=== PATIENT | male | born 1965 | race Caucasian/White ===

== ENCOUNTER 2016-11-22 21:17 | Emergency (ER) | payer OTHER ==
--- NOTE | 2016-11-22 23:14 | DIAGNOSTIC IMAGING REPORT ---
PROCEDURE: XR CHEST 2 VIEW INDICATION: COUGH TECHNIQUE: Two views. COMPARISON: None. FINDINGS: The cardiomediastinal contour and central vasculature are within normal limits. The lungs are clear without focal consolidation, pleural effusion, or pneumothorax. The visualized osseous structures are intact. IMPRESSION: 1. Normal chest.
--- NOTE | 2016-11-22 23:57 | DIAGNOSTIC IMAGING REPORT ---
PROCEDURE: ABDOMEN/PELVIS WITH CONTRAST CLINICAL INDICATION: ABDOMINAL PAIN left upper quadrant pain 2 days TECHNIQUE: 125 ml of Isovue 300 were injected intravenously and axial images were obtained of the abdomen and pelvis with sagittal and coronal reformations. COMPARISON: None. FINDINGS: ABDOMEN: Clear lung bases. Normal sized heart. No hiatal hernia. Multiple parapelvic cysts, left larger than right. The liver, gallbladder, adrenal glands, kidneys, pancreas and spleen are otherwise normal. The abdominal aorta is normal in its course and caliber. No atherosclerosis. There are no suspicious calcifications, retroperitoneal adenopathy or masses. The stomach, upper bowel loops, and mesentery are normal. Intact anterior abdominal wall. No free fluid or inflammation. PELVIS: The appendix and pelvic small bowel loops are normal. Normal amount of stool in the colon and rectum. The prostate gland, seminal vesicles, urinary bladder, and pelvic vessels are normal. No adenopathy, free fluid, or pelvic mass. Mild degenerative changes lower lumbar spine. IMPRESSION: 1. No acute process. 2. Bilateral, left greater than right parapelvic renal cysts. 3. Discussed with Dr. Billy in the emergency room. All CT scans at this facility use dose modulation, iterative reconstruction, and/or weight-based dosing when appropriate to reduce radiation dose to as low as reasonably achievable.
--- NOTE | 2016-11-23 01:56 | ED NURSING NOTES ---
Clinical Report - Nurses [facility] [address] [place] [address] 11/22/2016 21:20 [id number] Triage time 21:Nov 22 2016. Acuity: LEVEL 3. Chief Complaint: ABDOMINAL PAIN and NAUSEA. Alert. JB COMA SCORE: Jb Coma Scale: 15- eyes open spontaneously (4); best verbal response- oriented x 4 (5); best motor response- obeys commands (6). --21:38 Edward Singer R.N. 21:28 11/22/16. BP: 133/85. HR: 81. RR: 16. O2 saturation: 94%. Temp: 100.8 F (oral). Pain level now: 12/11. --21:38 Edward Singer R.N. Weight: 86.1 kg stated. Height/Length: 65 inches Per Patient. BMI: 31.6. --21:36 Edward Singer R.N. Medications Lisinopril Oral 10 mg, daily. --21:32 Edward Singer R.N. Allergies No Known Drug Allergy. --21:32 Edward Singer R.N. History Arrived by private vehicle. Historian: patient. Accompanied by friend. ( Abdominal Pain associated with a fever, nausea, and chills. Pt states that it all started yesterday about 26 hours ago.). This started yesterday. Onset. (about 26 hours ago). He has had fever, nausea and abdominal pain. Last oral intake by patient was (about 1 hour ago). 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 PAST MEDICAL HX: Immunizations: status is unknown. SOCIAL HX: Never smoker. No alcohol use or drug use. No recent travel. No infectious disease exposure. ABUSE ASSESSMENT: No report of abuse. FALL RISK ASSESSMENT: Fall risk assessment completed. No fall risk identified. NUTRITIONAL RISK ASSESSMENT: The nutritional risk assessment revealed no deficiencies. FUNCTIONAL ASSESSMENT: Functional assessment: no impairments noted. LEARNING NEEDS ASSESSMENT: The learning needs assessment revealed no barriers. SKIN INTEGRITY ASSESSMENT: Skin integrity risk assessment completed. No skin integrity risk identified. --21:38 Edward Singer R.N. ADDITIONAL SURGERIES: Inguinal Hernia Repair. Kidney Repair. Knee Surgery. Shoulder Surgery. --21:34 Edward Singer R.N. Interventions ID band on patient. To treatment room. --21:38 Edward Singer R.N. PHYSICAL ASSESSMENT Ambulatory to room. GENERAL / NEURO / PSYCH: Alert. Oriented X 4. Appears in pain. HEENT: Mucous membranes are pink. RESPIRATORY: Respirations not labored. CVS: Normal sinus rhythm noted. GI / : Abdomen soft. SKIN: Skin is warm and dry. --21:37 Edward Singer R.N. NURSING PROGRESS NOTES Patient gowned. Reassurance given. Call light placed in reach. Side rails up. Patient ready for evaluation- chart flagged and ED physician notified. --21:38 Edward Singer R.N. 21:42 11/22/2016 Site #1 started via IV in the right hand with an 20g angiocath, with aseptic technique and good blood return; one attempt. Blood drawn: rainbow set. Labeled in the presence of the patient and sent to the lab. Saline lock flushed with 10 mL saline. --21:57 Edward Singer R.N. 21:42 11/22/2016 Started bag #1 1000 mL IV Fluids IV NS (Saline); at 1000 mL/hr over 60 minute(s) via site #1. Allergies verified and confirmed 5 rights. IV patency established. IV site checked: no pain, redness, or swelling. IV flushed thoroughly pre- and post-medication administration. --21:57 Edward Singer R.N. 21:48 11/22/2016 Toradol IVP 30 mg given over 2 minute(s) via site #1. Allergies verified and confirmed 5 rights. IV patency established. IV site checked: no pain, redness, or swelling. IV flushed thoroughly pre- and post-medication administration. IVP given by RN. --21:58 Edward Singer R.N. 21:58 11/22/2016 Zofran (Ondansetron HCl) IVP 4 mg given over 2 minute(s) via site #1. Allergies verified and confirmed 5 rights. IV patency established. IV site checked: no pain, redness, or swelling. IV flushed thoroughly pre- and post-medication administration. IVP given by RN. --22:08 Edward Singer R.N. 23:47 11/22/16. BP: 134/79. HR: 71. RR: 16. O2 saturation: 95% on room air. Vallecillo-Snowden pain scale: 2/10. --23:48 Meli Fraire R.N. hall monitor, pulse oximeter and NIBP monitor placed on patient; monitor alarms on. --23:48 Meli Fraire R.N. ( pt given urinal and sample requested.). --23:53 Meli Fraire R.N. 23:54 11/22/2016 IV Fluids IV NS Discontinued: bag #1 completed. Total amount infused: 1000 mL. IV patency established. IV site checked: no pain, redness, or swelling. IV flushed thoroughly. (bag hanging dry at bedside upon my assuming care of pt.). --23:54 Meli Fraire R.N. 23:55 11/22/2016 Started bag #2 1000 mL IV Fluids IV NS (Saline); at 1000 mL/hr via site #1 via IV pump. Allergies verified and confirmed 5 rights. IV patency established. IV site checked: no pain, redness, or swelling. IV flushed thoroughly pre- and post-medication administration (bag #2 started per verbal order from EDMD). --23:56 Meli Fraire R.N. 00:55. Patient ID band checked for patient name and birthdate urine collected with return of yellow-colored genesis-colored clear urine; sample sent to lab. Specimen labeled in the presence of the patient. --01:14 Meli Fraire R.N. 00:55 11/23/2016 IV Fluids IV NS Discontinued: bag #2 completed. Total amount infused: 1000 mL. IV patency established. IV site checked: no pain, redness, or swelling. IV flushed thoroughly. --01:15 Meli Fraire R.N. DISPOSITION / DISCHARGE 02:26 11/23/2016 Site #1 removed upon discharge. Bandaid applied. --02:37 Stephanie Valdivia R.N. late entry - 02:32 11/23/16. Departure time: 02:35 Nov 23 2016. Condition at departure: improved. No learning barriers present. Discharge instructions provided and reviewed with the patient. Reviewed medication(s) side effects, precautions, dosing and course information. Prescription(s) given to the patient. Patient verbalized understanding. Written instructions provided in [place]. The patient was discharged by the physician. He was discharged home and accompanied by spouse. He left the Emergency Department ambulatory and via private vehicle. Spouse driving. --02:38 Stephanie Valdivia R.N. 02:36 11/23/16. BP: 135/92 (regular adult cuff) taken on the left arm, while sitting. HR: 77. RR: 16. O2 saturation: 96% on room air. Temp: 98.2 F (oral). Pain level now: 5/10. --02:38 Stephanie Valdivia R.N. Locked/Released at 12/01/2016 5:17 by Meli Fraire R.N.
--- NOTE | 2016-11-23 01:56 | ED CLINICAL REPORT ---
Clinical Report - Physicians/Mid Levels [facility] [address] [place] [place] [address] 11/22/2016 21:20 Patient: ARLETTE GOEL Time Seen: 21:25; initial patient contact. Arrived- By private vehicle. Historian- patient. HISTORY OF PRESENT ILLNESS Chief Complaint: ABDOMINAL PAIN. At its maximum, severity described as moderate. When seen in the E.D., severity described as moderate. Modifying factors. Not worsened by anything. Not relieved by anything. No radiation. It is described as located in the left abdomen. This started yesterday and is still present. The patient has had nausea, loss of appetite and vomiting. No diarrhea. No recent travel. Similar symptoms previously: None. Recent medical care: Not recently seen/assessed. REVIEW OF SYSTEMS No constipation, hematemesis, difficulty with urination, pain with urination or chest pain. No difficulty breathing or cough. He has had fever and chills. All systems otherwise negative, except as recorded above. PAST HISTORY Inguinal Hernia Repair. Kidney Repair. Knee Surgery. Shoulder Surgery. Hypertension. Medications: Lisinopril Oral 10 mg, daily. Allergies: No Known Drug Allergy. SOCIAL HISTORY Never smoker. No alcohol use or drug use. ADDITIONAL NOTES The nursing notes have been reviewed. PHYSICAL EXAM Vital Signs: 11/22/2016 21:28 BP: 133/85. HR: 81. RR: 16. O2 saturation: 94%. Temp: 100.8 F. Pain level now: 7/10. Have been reviewed. Blood pressure normal. Heart rate normal. Respiratory rate normal. Febrile. Oxygen saturation low. Appearance: Alert. Oriented X3. No acute distress. Eyes: Eyes normal inspection. ENT: Dry mucous membranes present. CVS: Normal heart rate and rhythm. Heart sounds normal. Respiratory: No respiratory distress. Breath sounds normal. Chest nontender. Abdomen: Soft. Mild tenderness in the left side of the abdomen. No guarding or rebound tenderness. Bowel sounds normal. No organomegaly. No mass. Back: Normal inspection. No CVA tenderness. Skin: Skin warm and dry. Normal skin color. Extremities: No lower extremity edema. Neuro: Oriented X 3. LABS, X-RAYS, AND EKG Chest X-ray: No acute disease. Normal lung markings present. Normal heart size. Mediastinum normal. Great vessels normal. No infiltrate. Views: PA and lateral. Technique: good. The X-rays were independently viewed by me and interpreted contemporaneously by me. Prior films were not available for comparison. Abdominal CT: 1. No acute process. 2. Bilateral, left greater than right parapelvic renal cysts. Study type: abdomen and pelvis. Abdominal CT performed with IV contrast. The study was independently viewed by me, interpreted by the radiologist and discussed with the radiologist. Prior studies were not available for comparison. Laboratory Tests: UA-Culture if indicated: (EZE: 11/22/2016 00:55) ( [facility]23[facility]2016 01:20) Final results Test Result Flag Units (Reference) URINE COLOR YELLOW URINE APPEARANCE CLEAR URINE GLUCOSE NEGATIVE (NEGATIVE) URINE BILIRUBIN NEGATIVE (NEGATIVE) URINE KETONE NEGATIVE (NEGATIVE) URINE SPECIFIC GRAVITY <= 1.005 L (1.010-1.030) URINE PH 5.5 (5.0-8.0) URINE PROTEIN NEGATIVE (NEGATIVE) URINE UROBILINOGEN 0.2 EU/dL (0.2-1.0) URINE NITRITE NEGATIVE (NEGATIVE) URINE BLOOD NEGATIVE (NEGATIVE) URINE LEUK ESTERASE NEGATIVE (NEGATIVE) URINE RBC RARE rbc/hpf (0-1) URINE WBC NONE SEEN wbc/hpf (0-1) URINE EPITHELIAL CELLS NONE SEEN EPI/hpf (0-5) URINE BACTERIA NONE SEEN (NONE SEEN) URINE COMMENT CULT NOT INDICATED URINE CULTURES ARE SET-UP BASED ON THE FOLLOWING CRITERIA:POSITIVE NITRITEPOSITIVE LEUKOCYTE ESTERASEGREATER THAN 10 WHITE BLOOD CELLSMODERATE (2+) OR GREATER BACTERIA CBC w Diff: (EZE: 11/22/2016 21:40) ( [facility] 11/22/2016 22:08) Final results Test Result Flag Units (Reference) WHITE BLOOD COUNT 5.8 K/uL (4.5-11.5) RED BLOOD COUNT 5.23 M/uL (4.50-5.90) HEMOGLOBIN 15.3 gm/dL (13.5-17.5) HEMATOCRIT 45.1 % (41.0-53.0) MEAN CELL VOLUME 86 fL (80-100) MEAN CORPUSCULAR HGB 29 pg (26-34) MEAN CORPUSCULAR HGB CONC 34 g/dL (31-37) RED CELL DISTRIBUTION WIDTH 13.5 % (11.6-14.8) PLATELET COUNT 159 K/uL (150-400) NEUTROPHIL % 82.4 H % (50-75) LYMPH % 7.4 L % (25-40) MONO % 9.9 % (3-14) EOSINOPHIL % 0.1 % (0-4) BASOPHIL % 0.2 % (0-2) CMP: (EZE: 11/22/2016 21:40) ( Msg[facility]cvd 11/22/2016 22:18) Final results Test Result Flag Units (Reference) GLUCOSE 114 H mg/dL (70-110) BUN 18 mg/dL (7-18) CREATININE 1.0 mg/dL (0.6-1.3) Estimated GFR >60 mL/min Estimated GFR- >60 mL/min Note: Persistent reduction over 3 months in eGFR<60 mL/min/1.73 m2 defines CKD. Patients with eGFR values>=60 mL/min/1.73 m2 may also have CKD if evidence ofpersistent proteinuria. Additional information may be foundat www.kidney.org. SODIUM 135 L mmol/L (136-145) POTASSIUM 3.8 mmol/L (3.5-5.1) CHLORIDE 102 mmol/L (98-107) CARBON DIOXIDE 24 mmol/L (21-32) CALCIUM 8.2 L mg/dL (8.5-10.1) TOTAL PROTEIN 7.0 g/dL (6.4-8.2) ALBUMIN 3.9 g/dL (3.3-5.0) BILIRUBIN, TOTAL 0.8 mg/dL (0.0-1.0) ALKALINE PHOSPHATASE 125 H U/L (46-116) AST (SGOT) 228 H U/L (15-37) ALT (SGPT) 315 H U/L (12-78) LIPASE 342 U/L (73-393) AMYLASE 52 U/L (25-115) . PROGRESS AND PROCEDURES Disposition: Discharged home in good and improved condition. Condition: good. CLINICAL IMPRESSION Acute left upper quadrant abdominal pain of unknown cause. INSTRUCTIONS Rest at home tomorrow. Do not work tomorrow. Your Current Medications: CONTINUE TAKING THE FOLLOWING MEDICATIONS: Lisinopril Oral : 10 mg daily. Prescription Medications: Zofran (orally disintegrating tablets) 4 mg: take 1 orally every 6 hours as needed for nausea and vomiting. Dispense ten (10). Substitution is permissible. Tramadol 50 mg: take 1 orally every 6 hours as needed for pain. Do not take more than 8 tablets in a 24 hour period. Dispense twenty (20). No refills. Follow-up: Follow up with your doctor in about two days. Call for an appointment. Blood pressure screening was not performed during this visit because the patient has an active diagnosis of hypertension. (Electronically signed by Tico Billy Dr. 11/23/2016 4:15)
--- NOTE | 2016-11-23 01:56 | ED ORDER SUMMARY ---
..... Patient: ARLETTE GOEL OrderSheet [facility] VisitID: [id number] [address] [place] [address] 51y, M Registration Date/Time: 11/22/2016 ORDER SHEET Weight: 86.1 kg (stated) Allergies: No Known Drug Allergy GENERAL ORDERS: Chest 2V Urgent (21:49 11/22/2016 Rosario Dyer) (Ack 21:51 AMcQuoid ER Tech1) (21:58 omanelli R.N.) CBC w Diff Urgent (21:49 11/22/2016 Rosario Dyer) (Ack 21:51 AMcQuoid ER Tech1) (21:56 Irasema R.N.) CMP Urgent (21:49 11/22/2016 Rosario Dyer) (Ack 21:51 AMcQuoid ER Tech1) (21:56 Irasema R.N.) UA-Culture if indicated Urgent (21:49 11/22/2016 Rosario Dyer) (Ack 21:51 AMcQuoid ER Tech1) (1:10 AMcQuoid ER Tech1) Amylase Urgent (21:49 11/22/2016 Rosario Dyer) (Ack 21:51 AMcQuoid ER Tech1) (21:56 Irasema R.N.) Lipase Urgent (21:49 11/22/2016 Rosario Dyer) (Ack 21:51 AMcQuoid ER Tech1) (21:56 Irasema R.N.) CT Abd/Pel w Cont (No) (18/1.0) Urgent (22:49 11/22/2016 Rosario Dyer) (Ack 22:53 AMcQuoid ER Tech1) (23:48 MCampbell) MEDICATION ORDERS: IV FLUIDS: IV NS : initial bolus none -, then 1000 mL/hr for X1 (NOW) (21:49 11/22/2016 Rosario Dyer) (21:57 Irasema R.N.) Toradol IV 30 mg (NOW) (21:49 11/22/2016 Rosario Dyer) (21:58 Irasema R.N.) Zofran IV 4 mg (NOW) (21:49 11/22/2016 Rosario Dyer) (22:08 Irasema Clarke) ORDER SHEET NOTES: [Electronically signed by Tico Billy Dr. (04:15 11/23/2016)] [Electronically signed by Meli Fraire R.N. (05:17 12/01/2016)] [Electronically locked/signed by Meli Fraire R.N. (05:17 12/01/2016)]
--- NOTE | 2016-11-23 01:56 | ED ORDER SUMMARY ---
..... Patient: ARLETTE GOEL OrderSheet [facility] VisitID: [id number] [address] [place] [address] 51y, M Registration Date/Time: 11/22/2016 ORDER SHEET Weight: 86.1 kg (stated) Allergies: No Known Drug Allergy GENERAL ORDERS: Chest 2V Urgent (21:49 11/22/2016 Rosario Dyer) (Ack 21:51 AMcQuoid ER Tech1) (21:58 omanelli R.N.) CBC w Diff Urgent (21:49 11/22/2016 Rosario Dyer) (Ack 21:51 AMcQuoid ER Tech1) (21:56 Irasema R.N.) CMP Urgent (21:49 11/22/2016 Rosario Dyer) (Ack 21:51 AMcQuoid ER Tech1) (21:56 Irasema R.N.) UA-Culture if indicated Urgent (21:49 11/22/2016 Rosario Dyer) (Ack 21:51 AMcQuoid ER Tech1) (1:10 AMcQuoid ER Tech1) Amylase Urgent (21:49 11/22/2016 Rosario Dyer) (Ack 21:51 AMcQuoid ER Tech1) (21:56 Irasema R.N.) Lipase Urgent (21:49 11/22/2016 Rosario Dyer) (Ack 21:51 AMcQuoid ER Tech1) (21:56 Irasema R.N.) CT Abd/Pel w Cont (No) (18/1.0) Urgent (22:49 11/22/2016 Rosario Dyer) (Ack 22:53 AMcQuoid ER Tech1) (23:48 MCampbell) MEDICATION ORDERS: IV FLUIDS: IV NS : initial bolus none -, then 1000 mL/hr for X1 (NOW) (21:49 11/22/2016 Rosario Dyer) (21:57 Irasema R.N.) Toradol IV 30 mg (NOW) (21:49 11/22/2016 Rosario Dyer) (21:58 Irasema R.N.) Zofran IV 4 mg (NOW) (21:49 11/22/2016 Rosario Dyer) (22:08 Irasema Clarke) ORDER SHEET NOTES: [Electronically signed by Tico Billy Dr. (04:15 11/23/2016)] [Electronically signed by Meli Fraire R.N. (05:17 12/01/2016)] [Electronically locked/signed by Meli Fraire R.N. (05:17 12/01/2016)]
--- NOTE | 2016-11-23 01:56 | ED NURSING NOTES ---
Clinical Report - Nurses [facility] [address] [place] [address] 11/22/2016 21:20 [id number] Triage time 21:Nov 22 2016. Acuity: LEVEL 3. Chief Complaint: ABDOMINAL PAIN and NAUSEA. Alert. JB COMA SCORE: Jb Coma Scale: 15- eyes open spontaneously (4); best verbal response- oriented x 4 (5); best motor response- obeys commands (6). --21:38 Edward Singer R.N. 21:28 11/22/16. BP: 133/85. HR: 81. RR: 16. O2 saturation: 94%. Temp: 100.8 F (oral). Pain level now: 12/11. --21:38 Edward Singer R.N. Weight: 86.1 kg stated. Height/Length: 65 inches Per Patient. BMI: 31.6. --21:36 Edward Singer R.N. Medications Lisinopril Oral 10 mg, daily. --21:32 Edward Singer R.N. Allergies No Known Drug Allergy. --21:32 Edward Singer R.N. History Arrived by private vehicle. Historian: patient. Accompanied by friend. ( Abdominal Pain associated with a fever, nausea, and chills. Pt states that it all started yesterday about 26 hours ago.). This started yesterday. Onset. (about 26 hours ago). He has had fever, nausea and abdominal pain. Last oral intake by patient was (about 1 hour ago). 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 PAST MEDICAL HX: Immunizations: status is unknown. SOCIAL HX: Never smoker. No alcohol use or drug use. No recent travel. No infectious disease exposure. ABUSE ASSESSMENT: No report of abuse. FALL RISK ASSESSMENT: Fall risk assessment completed. No fall risk identified. NUTRITIONAL RISK ASSESSMENT: The nutritional risk assessment revealed no deficiencies. FUNCTIONAL ASSESSMENT: Functional assessment: no impairments noted. LEARNING NEEDS ASSESSMENT: The learning needs assessment revealed no barriers. SKIN INTEGRITY ASSESSMENT: Skin integrity risk assessment completed. No skin integrity risk identified. --21:38 Edward Singer R.N. ADDITIONAL SURGERIES: Inguinal Hernia Repair. Kidney Repair. Knee Surgery. Shoulder Surgery. --21:34 Edward Singer R.N. Interventions ID band on patient. To treatment room. --21:38 Edward Singer R.N. PHYSICAL ASSESSMENT Ambulatory to room. GENERAL / NEURO / PSYCH: Alert. Oriented X 4. Appears in pain. HEENT: Mucous membranes are pink. RESPIRATORY: Respirations not labored. CVS: Normal sinus rhythm noted. GI / : Abdomen soft. SKIN: Skin is warm and dry. --21:37 Edward Singer R.N. NURSING PROGRESS NOTES Patient gowned. Reassurance given. Call light placed in reach. Side rails up. Patient ready for evaluation- chart flagged and ED physician notified. --21:38 Edward Singer R.N. 21:42 11/22/2016 Site #1 started via IV in the right hand with an 20g angiocath, with aseptic technique and good blood return; one attempt. Blood drawn: rainbow set. Labeled in the presence of the patient and sent to the lab. Saline lock flushed with 10 mL saline. --21:57 Edward Singer R.N. 21:42 11/22/2016 Started bag #1 1000 mL IV Fluids IV NS (Saline); at 1000 mL/hr over 60 minute(s) via site #1. Allergies verified and confirmed 5 rights. IV patency established. IV site checked: no pain, redness, or swelling. IV flushed thoroughly pre- and post-medication administration. --21:57 Edward Singer R.N. 21:48 11/22/2016 Toradol IVP 30 mg given over 2 minute(s) via site #1. Allergies verified and confirmed 5 rights. IV patency established. IV site checked: no pain, redness, or swelling. IV flushed thoroughly pre- and post-medication administration. IVP given by RN. --21:58 Edward Singer R.N. 21:58 11/22/2016 Zofran (Ondansetron HCl) IVP 4 mg given over 2 minute(s) via site #1. Allergies verified and confirmed 5 rights. IV patency established. IV site checked: no pain, redness, or swelling. IV flushed thoroughly pre- and post-medication administration. IVP given by RN. --22:08 Edward Singer R.N. 23:47 11/22/16. BP: 134/79. HR: 71. RR: 16. O2 saturation: 95% on room air. Vallecillo-Snowden pain scale: 2/10. --23:48 Meli Fraire R.N. system support technician, pulse oximeter and NIBP monitor placed on patient; monitor alarms on. --23:48 Meli Fraire R.N. ( pt given urinal and sample requested.). --23:53 Meli Fraire R.N. 23:54 11/22/2016 IV Fluids IV NS Discontinued: bag #1 completed. Total amount infused: 1000 mL. IV patency established. IV site checked: no pain, redness, or swelling. IV flushed thoroughly. (bag hanging dry at bedside upon my assuming care of pt.). --23:54 Meli Fraire R.N. 23:55 11/22/2016 Started bag #2 1000 mL IV Fluids IV NS (Saline); at 1000 mL/hr via site #1 via IV pump. Allergies verified and confirmed 5 rights. IV patency established. IV site checked: no pain, redness, or swelling. IV flushed thoroughly pre- and post-medication administration (bag #2 started per verbal order from EDMD). --23:56 Meli Fraire R.N. 00:55. Patient ID band checked for patient name and birthdate urine collected with return of yellow-colored genesis-colored clear urine; sample sent to lab. Specimen labeled in the presence of the patient. --01:14 Meli Fraire R.N. 00:55 11/23/2016 IV Fluids IV NS Discontinued: bag #2 completed. Total amount infused: 1000 mL. IV patency established. IV site checked: no pain, redness, or swelling. IV flushed thoroughly. --01:15 Meli Fraire R.N. DISPOSITION / DISCHARGE 02:26 11/23/2016 Site #1 removed upon discharge. Bandaid applied. --02:37 Stephanie Valdivia R.N. late entry - 02:32 11/23/16. Departure time: 02:35 Nov 23 2016. Condition at departure: improved. No learning barriers present. Discharge instructions provided and reviewed with the patient. Reviewed medication(s) side effects, precautions, dosing and course information. Prescription(s) given to the patient. Patient verbalized understanding. Written instructions provided in [place]ian. The patient was discharged by the physician. He was discharged home and accompanied by spouse. He left the Emergency Department ambulatory and via private vehicle. Spouse driving. --02:38 Stephanie Valdivia R.N. 02:36 11/23/16. BP: 135/92 (regular adult cuff) taken on the left arm, while sitting. HR: 77. RR: 16. O2 saturation: 96% on room air. Temp: 98.2 F (oral). Pain level now: 5/10. --02:38 Stephanie Valdivia R.N. Locked/Released at 12/01/2016 5:17 by Meli Fraire R.N.
--- NOTE | 2016-12-01 05:18 | ED MAR SUMMARY ---
..... Medication Administration Record [facility] [address] [place] [address] Patient: ARLETTE GOEL Visit ID: [id number] 51y, M Weight: 86.1 kg Height/Length: 65 in BMI: 31.6 ALLERGIES: No Known Drug Allergy Start 21:42 11/22/2016 Edward Singer R.N., Stop 23:54 11/22/2016 Meli Fraire R.N. Medication Administered: IV NS (SALINE), Dose: IV Fluids over 60 minute(s), Rate: 1000 mL/hr, Dispensed: 1000 mL bag, Site: #1 right hand. Medication Ordered: IV NS : initial bolus none -, then 1000 mL/hr for X1 (NOW). Given 21:48 11/22/2016 Edward Singer R.N. Medication Administered: TORADOL [IVP], Dose: 30 mg IVP over 2 minute(s), Site: #1 right hand. Medication Ordered: Toradol IV 30 mg (NOW). Given 21:58 11/22/2016 Edward Singer R.N. Medication Administered: ZOFRAN [IVP] (ONDANSETRON HCL), Dose: 4 mg IVP over 2 minute(s), Site: #1 right hand. Medication Ordered: Zofran IV 4 mg (NOW). Start 23:55 11/22/2016 Meli Fraire R.N., Stop 00:55 11/23/2016 Meli Fraire R.N. Medication Administered: IV NS (SALINE), Dose: IV Fluids, Rate: 1000 mL/hr, Dispensed: 1000 mL bag, Site: #1 right hand. Medication Ordered: IV NS : initial bolus none -, then 1000 mL/hr for X1 (NOW).
--- NOTE | 2016-12-01 05:18 | ED MED RECONCILIATION SUMMARY ---
Patient: YAQUELIN GOELN Kirsten Medication Reconciliation Report [facility] VisitID: [id number] [address] [place] [address] 51y, M Registration Date/Time: 11/22/2016 Weight: 86.1 kg Height/Length: 65 in. BMI: 31.6 ALLERGIES: No Known Drug Allergy The patient's Home Medications are listed below: CONTINUE TAKING THE FOLLOWING MEDICATIONS: Lisinopril Oral 10 mg, daily The source(s) of the original Home Medication information: Not obtained. The following Medications were given to the patient in the Emergency Department: IV NS IV Fluids bolus 0, then 1000 mL/hr, administered: 11/22/2016 9:42:00 PM Toradol [IVP] IVP 30 mg, administered: 11/22/2016 9:48:00 PM Zofran [IVP] IVP 4 mg, administered: 11/22/2016 9:58:00 PM IV NS IV Fluids bolus 0, then 1000 mL/hr, administered: 11/22/2016 11:55:00 PM The following Medications were prescribed to the patient: Zofran (orally disintegrating tablets) 4 mg: take 1 orally every 6 hours as needed for nausea and vomiting. Dispense ten (10). Substitution is permissible. -- Tico Billy Dr. Tramadol 50 mg: take 1 orally every 6 hours as needed for pain. Do not take more than 8 tablets in a 24 hour period. Dispense twenty (20). No refills. -- Tico Billy Dr.
--- NOTE | 2016-12-01 05:18 | ED DISCHARGE INSTRUCTIONS ---
Patient: ARLETTE GOEL General Instructions [facility] VisitID: [id number] [place] [address] 51y, M Registration Date/Time: 11/22/2016 Acute left upper quadrant abdominal pain of unknown cause. INSTRUCTIONS Rest at home tomorrow. Do not work tomorrow. Your Current Medications: CONTINUE TAKING THE FOLLOWING MEDICATIONS: Lisinopril Oral : 10 mg daily. Prescription Medications: Zofran (orally disintegrating tablets) 4 mg: take 1 orally every 6 hours as needed for nausea and vomiting. Dispense ten (10). Substitution is permissible. Tramadol 50 mg: take 1 orally every 6 hours as needed for pain. Do not take more than 8 tablets in a 24 hour period. Dispense twenty (20). No refills. Follow-up: Follow up with your doctor in about two days. Call for an appointment. Blood pressure screening was not performed during this visit because the patient has an active diagnosis of hypertension. ADDITIONAL INFORMATION Abdominal Pain,Uncertain Cause [Male] Based on your visit today, the exact cause of your abdominalpain is not clear. Your exam and tests do not indicate a dangerous cause at this time. However, the signs of a serious problem may take more time to appear. Although your evaluation was reassuring today, sometimes early in the course of many conditions, exam and lab tests can appear normal. Therefore, it is important for you to watch for any new symptoms or worsening of your condition. Causes It may not be obvious what caused your symptoms. Pay attention to things that do seem to make your symptoms worse or better and discuss this with your doctor when you follow up. Diagnosis The evaluation of abdominal pain in the emergency department may onlyrequire an exam by the doctor or it may include blood, urine or imaging studies, depending on many factors. Sometimes exams and tests can identify a cause but in many cases, a clear cause is not found. Further testing at follow up visits may help to suggest a clear diagnosis. Home Care Rest as much as possible until your next exam. Try to avoid any medications (unless otherwise directed by your doctor), foods, activities, or other factors that you may have contributed to your symptoms. Try to eat foods that you know that you have tolerated well in the past. Certain diets may be recommended for some conditions that cause abdominal pain. However, since the cause of your symptoms may not be clear, discuss your diet more with your primary care provider or specialist for further recommendations. Eating several small meals per day as opposed to 2 or 3 larger meals may help. Monitor closely for anything that may make your symptoms worse or better. Pay close attention to symptoms below that may indicate worsening of your condition. Follow Up and Precautions See your doctoras instructed or sooneror if your symptoms are not improving.In some cases, you may need more testing. When to Seek Medical Attention Contact your doctor or see medical attention ifany of the following occur: Pain is becoming worse You are unable to take your medications due to excessive vomiting Swelling of the abdomen Fever of 100.4F (38C) or higher, or as directed by your health care provider Blood in vomit or bowel movements (dark red or black color) Jaundice (yellow color of eyes and skin) New onset of weakness, dizziness or fainting New onset of chest, arm, back, neck or jaw pain Ondansetron Oral disintegrating tablet What is this medicine? ONDANSETRON (on JIN se gamaliel) is used to treat nausea and vomiting caused by chemotherapy. It is also used to prevent or treat nausea and vomiting after surgery. How should I use this medicine? These tablets are made to dissolve in the mouth. Do not try to push the tablet through the foil backing. With dry hands, peel away the foil backing and gently remove the tablet. Place the tablet in the mouth and allow it to dissolve, then swallow. While you may take these tablets with water, it is not necessary to do so. Talk to your die mounter regarding the use of this medicine in children. Special care may be needed. What side effects may I notice from receiving this medicine? Side effects that you should report to your doctor or health transitions rn care coordinator as soon as possible: allergic reactions like skin rash, itching or hives, swelling of the face, lips, or tongue breathing problems dizziness fast or irregular heartbeat feeling faint or lightheaded, falls fever and chills swelling of the hands and feet tightness in the chest Side effects that usually do not require medical attention (report to your doctor or health transitions rn care coordinator if they continue or are bothersome): constipation or diarrhea headache What may interact with this medicine? Do not take this medicine with any of the following medications: -apomorphine -cisapride -dofetilide -dronedarone -pimozide -thioridazine -ziprasidone This medicine may also interact with the following medications: -carbamazepine -phenytoin -rifampicin -tramadol -other medicines that prolong the QT interval (cause an abnormal heart rhythm) What if I miss a dose? If you miss a dose, take it as soon as you can. If it is almost time for your next dose, take only that dose. Do not take double or extra doses. Where should I keep my medicine? Keep out of the reach of children. Store between 2 and 30 degrees C (36 and 86 degrees F). Throw away any unused medicine after the expiration date. What should I tell my health care provider before I take this medicine? They need to know if you have any of these conditions: heart disease history of irregular heartbeat liver disease low levels of magnesium or potassium in the blood an unusual or allergic reaction to ondansetron, granisetron, other medicines, foods, dyes, or preservatives or trying to get breast-feeding What should I watch for while using this medicine? Check with your doctor or health transitions rn care coordinator as soon as you can if you have any sign of an allergic reaction. Tramadol Hydrochloride Oral tablet What is this medicine? TRAMADOL (TRA ma dole) is a pain reliever. It is used to treat moderate to severe pain in adults. How should I use this medicine? Take this medicine by mouth with a full glass of water. Follow the directions on the prescription label. If the medicine upsets your stomach, take it with food or milk. Do not take more medicine than you are told to take. Talk to your die mounter regarding the use of this medicine in children. Special care may be needed. What side effects may I notice from receiving this medicine? Side effects that you should report to your doctor or health transitions rn care coordinator as soon as possible: allergic reactions like skin rash, itching or hives, swelling of the face, lips, or tongue breathing difficulties, wheezing confusion itching light headedness or fainting spells redness, blistering, peeling or loosening of the skin, including inside the mouth seizures Side effects that usually do not require medical attention (report to your doctor or health transitions rn care coordinator if they continue or are bothersome): constipation dizziness drowsiness headache nausea, vomiting What may interact with this medicine? Do not take this medicine with any of the following medications: MAOIs like Carbex, Eldepryl, Marplan, Nardil, and Parnate This medicine may also interact with the following medications: alcohol or medicines that contain alcohol antihistamines benzodiazepines bupropion carbamazepine or oxcarbazepine clozapine cyclobenzaprine digoxin furazolidone linezolid medicines for depression, anxiety, or psychotic disturbances medicines for migraine headache like almotriptan, eletriptan, frovatriptan, naratriptan, rizatriptan, sumatriptan, zolmitriptan medicines for pain like pentazocine, buprenorphine, butorphanol, meperidine, nalbuphine, and propoxyphene medicines for sleep muscle relaxants naltrexone phenobarbital phenothiazines like perphenazine, thioridazine, chlorpromazine, mesoridazine, fluphenazine, prochlorperazine, promazine, and trifluoperazine procarbazine warfarin What if I miss a dose? If you miss a dose, take it as soon as you can. If it is almost time for your next dose, take only that dose. Do not take double or extra doses. Where should I keep my medicine? Keep out of the reach of children. Store at room temperature between 15 and 30 degrees C (59 and 86 degrees F). Keep container tightly closed. Throw away any unused medicine after the expiration date. What should I tell my health care provider before I take this medicine? They need to know if you have any of these conditions: brain tumor depression drug abuse or addiction head injury if you frequently drink alcohol containing drinks kidney disease or trouble passing urine liver disease lung disease, asthma, or breathing problems seizures or epilepsy suicidal thoughts, plans, or attempt; a previous suicide attempt by you or a family member an unusual or allergic reaction to tramadol, codeine, other medicines, foods, dyes, or preservatives or trying to get breast-feeding What should I watch for while using this medicine? Tell your doctor or health transitions rn care coordinator if your pain does not go away, if it gets worse, or if you have new or a different type of pain. You may develop tolerance to the medicine. Tolerance means that you will need a higher dose of the medicine for pain relief. Tolerance is normal and is expected if you take this medicine for a long time. Do not suddenly stop taking your medicine because you may develop a severe reaction. Your body becomes used to the medicine. This does NOT mean you are addicted. Addiction is a behavior related to getting and using a drug for a non-medical reason. If you have pain, you have a medical reason to take pain medicine. Your doctor will tell you how much medicine to take. If your doctor wants you to stop the medicine, the dose will be slowly lowered over time to avoid any side effects. You may get drowsy or dizzy. Do not drive, use machinery, or do anything that needs mental alertness until you know how this medicine affects you. Do not stand or sit up quickly, especially if you are an older patient. This reduces the risk of dizzy or fainting spells. Alcohol can increase or decrease the effects of this medicine. Avoid alcoholic drinks. You may have constipation. Try to have a bowel movement at least every 2 to 3 days. If you do not have a bowel movement for 3 days, call your doctor or health transitions rn care coordinator. Your mouth may get dry. Chewing sugarless gum or sucking hard candy, and drinking plenty of water may help. Contact your doctor if the problem does not go away or is severe. You have been given the following additional information: Abdominal Pain, Unknown Cause, (Male) Ondansetron Oral disintegrating tablet Tramadol Hydrochloride Oral tablet Rest at home tomorrow. Do not work tomorrow. (Electronically signed by Tico Billy Dr. 11/23/2016 4:15)
--- NOTE | 2016-12-01 05:18 | ED MED RECONCILIATION SUMMARY ---
Patient: YAQUELIN GOELN Kirsten Medication Reconciliation Report [facility] VisitID: [id number] [address] [place] [address] 51y, M Registration Date/Time: 11/22/2016 Weight: 86.1 kg Height/Length: 65 in. BMI: 31.6 ALLERGIES: No Known Drug Allergy The patient's Home Medications are listed below: CONTINUE TAKING THE FOLLOWING MEDICATIONS: Lisinopril Oral 10 mg, daily The source(s) of the original Home Medication information: Not obtained. The following Medications were given to the patient in the Emergency Department: IV NS IV Fluids bolus 0, then 1000 mL/hr, administered: 11/22/2016 9:42:00 PM Toradol [IVP] IVP 30 mg, administered: 11/22/2016 9:48:00 PM Zofran [IVP] IVP 4 mg, administered: 11/22/2016 9:58:00 PM IV NS IV Fluids bolus 0, then 1000 mL/hr, administered: 11/22/2016 11:55:00 PM The following Medications were prescribed to the patient: Zofran (orally disintegrating tablets) 4 mg: take 1 orally every 6 hours as needed for nausea and vomiting. Dispense ten (10). Substitution is permissible. -- Tico iBlly Dr. Tramadol 50 mg: take 1 orally every 6 hours as needed for pain. Do not take more than 8 tablets in a 24 hour period. Dispense twenty (20). No refills. -- Tico Billy Dr.
--- NOTE | 2016-12-01 05:18 | ED MAR SUMMARY ---
..... Medication Administration Record [facility] [address] [place] [address] Patient: ARLETTE GOEL Visit ID: [id number] 51y, M Weight: 86.1 kg Height/Length: 65 in BMI: 31.6 ALLERGIES: No Known Drug Allergy Start 21:42 11/22/2016 Edward Singer R.N., Stop 23:54 11/22/2016 Meli Fraire R.N. Medication Administered: IV NS (SALINE), Dose: IV Fluids over 60 minute(s), Rate: 1000 mL/hr, Dispensed: 1000 mL bag, Site: #1 right hand. Medication Ordered: IV NS : initial bolus none -, then 1000 mL/hr for X1 (NOW). Given 21:48 11/22/2016 Edward Singer R.N. Medication Administered: TORADOL [IVP], Dose: 30 mg IVP over 2 minute(s), Site: #1 right hand. Medication Ordered: Toradol IV 30 mg (NOW). Given 21:58 11/22/2016 Edwrad Singer R.N. Medication Administered: ZOFRAN [IVP] (ONDANSETRON HCL), Dose: 4 mg IVP over 2 minute(s), Site: #1 right hand. Medication Ordered: Zofran IV 4 mg (NOW). Start 23:55 11/22/2016 Meli Fraire R.N., Stop 00:55 11/23/2016 Meli Fraire R.N. Medication Administered: IV NS (SALINE), Dose: IV Fluids, Rate: 1000 mL/hr, Dispensed: 1000 mL bag, Site: #1 right hand. Medication Ordered: IV NS : initial bolus none -, then 1000 mL/hr for X1 (NOW).
== END 2016-11-23 02:35 | disposition home or self-care (01) ==
LOC: ED SRH 21:17
DX: R10.12 Left upper quadrant pain (principal); R11.2 Nausea with vomiting, unspecified; I10 Essential (primary) hypertension; Z79.899 Other long term (current) drug therapy
CPT/HCPCS: 90004; 90100; 92235; 92530; 95059